=== PATIENT | female | born 2000 | race Caucasian/White ===

== ENCOUNTER 2025-09-01 10:33 | Emergency (ER) | payer OTHER ==
[~2025-09-01] VITALS: Ht 160 cm; Wt 55.8 kg
[2025-09-01 10:42] VITALS: BP 137/85; TEMP 98.8; O2SAT 98
[2025-09-01] MEDS ORDERED: BENZONATATE 100 MG CAPSULE PO ONE (10:56)
[2025-09-01] MEDS ORDERED: PSEUDOEPHEDRINE HCL 30 MG TABLET ONE (10:56)
[2025-09-01] MEDS ORDERED: IBUPROFEN 600 MG TABLET ONE (10:56)
[2025-09-01] MEDS: BENZONATATE 100 MG CAPSULE PO PRN (10:58)
[2025-09-01] MEDS: PSEUDOEPHEDRINE HCL 30 MG TABLET PO ONE (10:58)
[2025-09-01] MEDS: IBUPROFEN 600 MG TABLET PO ONE (10:58)
[2025-09-01] MEDS ORDERED: ALBU18HF2 INH (11:01)
== END 2025-09-01 11:16 | disposition home or self-care (01) ==
LOC: ER 10:43
DX: B34.9 Viral infection, unspecified (principal); R05.9 Cough, unspecified; R09.81 Nasal congestion

== ENCOUNTER 2025-09-08 10:41 | Emergency (ER) | payer OTHER ==
[~2025-09-08] VITALS: Ht 160 cm; Wt 56.2 kg
[~2025-09-08 10:41] MED LIST: ALBU18HF2 INH
[2025-09-08] MEDS ORDERED: LIDOCAINE 5% (PATCH) 1 EA PATCH TP ONE (11:28)
[2025-09-08] MEDS ORDERED: CYCLOBENZAPRINE 10 MG TABLET ONE (11:28)
[2025-09-08] MEDS ORDERED: IBUPROFEN 600 MG TABLET ONE (11:28)
[2025-09-08] MEDS: LIDOCAINE 5% (PATCH) 1 EA PATCH TP STA (11:36)
[2025-09-08] MEDS: CYCLOBENZAPRINE 10 MG TABLET PO ONE (11:36)
[2025-09-08] MEDS: IBUPROFEN 600 MG TABLET PO ONE (11:36)
[2025-09-08] MEDS ORDERED: LIDO30AD10 TP (12:33)
[2025-09-08] MEDS ORDERED: CYCL5TAB PO (12:33)
[2025-09-08] MEDS ORDERED: IBUP-1955 PO (12:33)
[2025-09-08 12:41] VITALS: BP 129/81; TEMP 98.1; O2SAT 98
== END 2025-09-08 12:41 | disposition home or self-care (01) ==
LOC: ER 10:50
DX: S39.012A Strain of muscle, fascia and tendon of lower back, initial encounter (principal); V89.2XXA Person injured in unspecified motor-vehicle accident, traffic, initial encounter; Y93.89 Activity, other specified; Y92.410 Unspecified street and highway as the place of occurrence of the external cause; Y99.8 Other external cause status
CPT/HCPCS: 72110-TC